=== PATIENT | male | born 1965 | race Caucasian/White ===

== ENCOUNTER 2023-01-23 17:27 | Outpatient (CLI) | payer OTHER ==
--- NOTE | 2023-01-24 03:16 | XRAY Report ---
PROCEDURE: Ribs w/PA Chest LT INDICATIONS: RIG PAIN LEFT SIDED TECHNIQUE: 2 views of the left ribs were acquired, along with a single view chest. COMPARISON: None. FINDINGS: Surgical changes and devices: None. Bones and chest wall: No displaced rib fracture identified. No suspicious bony lesions. Overlying so ft tissues appear unremarkable. Lungs and pleura: No pleural effusions or pneumothorax. Lungs appear clear. Mediastinum: Mediastinal contours appear normal. Heart size is normal. IMPRESSION: 1. No displaced rib fracture identified. Reviewed by: Giovanni Borden MD on 01/24/2023 3:15 AM PDT Approved by: Giovanni Borden MD on 01/24/2023 3:15 AM PDT Station ID: [id number]
== END 2023-01-23 17:28 | disposition home or self-care (01) ==
LOC: DI 17:27
PROVIDERS: ATTEND Registered Nurse
DX: R07.81 Pleurodynia (principal)